=== PATIENT | female | born 1985 | race Caucasian/White ===

== ENCOUNTER 2016-10-12 23:55 | Emergency (ER) | payer OTHER ==
[2016-10-13 00:15] VITALS: BP 112/71; PULSE 112; TEMP 98.9; BMI 29.0
[2016-10-13] MEDS ORDERED: PENICILLIN V POTASSIUM 500 MG TABLET PO ONE (01:22)
[2016-10-13] MEDS ORDERED: DEXAMETHASONE SOD PHOSPHATE 10 MG/1 ML VIAL IM ONE (01:22)
[2016-10-13] MEDS ORDERED: ALBUTEROL SO4 2.5/IPRATROPIUM 0.5 INH SOL 3 ML VIAL.NEB. NEB ONE (01:22)
[2016-10-13] MEDS ORDERED: IBUPROFEN 400 MG TABLET (FP) PO ONE (01:23)
--- NOTE | 2016-10-13 02:50 | PDOC ---
History of Present Illness - General Chief Complaint: Cold Symptoms Stated Complaint: COLD SYMPTOMS Time Seen by Provider: 10/13/16 00:43 History Source: Patient Exam Limitations: No Limitations - History of Present Illness Initial Comments: 10/13/16 02:45 30yo Female patient w/ PmHx: seasonal asthma presents to ED c/o sore throat, cough, pain with swallowing, difficulty eating and wheezing beginning yesterday. Patient reports low grade fever today. She states her sister is a nurse and told her she has strep throat. Patient denies any other complaint at this time. Timing/Duration: reports: yesterday Severity: reports: moderate Possible Cause: Yes: no prior episodes Modifying Factors: improves with: activity, albuterol inhaler, albuterol nebulizer Associated Symptoms: reports: fever/chills, sore throat, wheezing. denies: denies symptoms, chest pain/soreness, cough, dizziness, earache, facial pain, headache, lightheadedness, muscle aches, nasal congestion, nasal drainage, shortness of breath, sinus infection, other Past History - Travel Traveled outside of the country in the last 30 days: No Close contact w/someone who was outside of country & ill: No - Past Medical History Allergies/Adverse Reactions: Allergies Allergy/AdvReac Type Severity Reaction Status Date / Time No Known Drug Allergies Allergy Verified 10/13/16 02:28 cats Allergy Uncoded 10/13/16 00:12 Home Medications: Ambulatory Orders Albuterol 0.083% Nebulizer Erika [Ventolin 0.083% Nebulizer Soln -] 1 amp NEB Q4H PRN #1 box 10/13/16 Albuterol Sulfate Inhaler - [Ventolin Hfa Inhaler -] 1 puff IH Q4H PRN #1 inhaler 10/13/16 Penicillin V Potassium [Pen Vee K -] 500 mg PO TID #21 tablet 10/13/16 Prednisone [Deltasone -] 10 mg PO ASDIR #16 tab 10/13/16 - Psycho/Social/Smoking Cessation Hx Suicidal Ideation: No Smoking History: Current every day smoker Information on smoking cessation initiated: No Respiratory Specific PMHX - Complaint Specific PMHX Angina: No Bronchitis: No Pneumonia: No Pulmonary Embolus: No TB (Tuberculosis): No Review of Systems - Review of Systems Able to Perform ROS?: Yes Is the patient limited Montenegrin proficient: No Constitutional: Yes: Fever. No: Chills HEENTM: Yes: Throat Pain, Difficulty Swallowing. No: Eye Pain, Blurred Vision, Ear Pain, Ear Discharge, Nose Congestion, Throat Swelling, Mouth Pain, Mouth Swelling Respiratory: Yes: Cough, Wheezing. No: Shortness of Breath, Stridor, Hemoptysis Cardiac (ROS): No: Chest Pain, Palpitations, Chest Tightness ABD/GI: No: Constipated, Diarrhea, Nausea, Poor Appetite, Poor Fluid Intake, Vomiting : No: Dysuria, Flank Pain, Hematuria, Lesions Musculoskeletal: No: Back Pain Integumentary: No: Dryness, Erythema, Rash, Sweating Neurological: No: Headache, Seizure All Other Systems: Reviewed and Negative *Physical Exam - Vital Signs Last Vital Signs Temp Pulse Resp BP Pulse Ox 98.9 F 112 H 16 112/71 98 10/13/16 00:14 10/13/16 00:14 10/13/16 00:14 10/13/16 00:10/13/16 00:14 - Physical Exam General Appearance: Yes: Nourished, Appropriately Dressed. No: Apparent Distress, Mild Distress, Moderate Distress, Severe Distress HEENT: positive: EOMI, RUBINA, Normal ENT Inspection, Normal Voice, Symmetrical, TMs Normal, Pharyngeal Erythema, Tonsillar Exudate, Tonsillar Erythema. negative: Pharynx Normal, Nasal Congestion, Rhinorrhea, Sinus Tenderness, TM Bulging, TM Dull, TM Erythema Neck: positive: Trachea midline, Normal Thyroid, Supple, Lymphadenopathy (L). negative: Decreased range of motion, Stridor, Lymphadenopathy (R), Tender lateral, Tender midline Respiratory/Chest: positive: Wheezing Cardiovascular: positive: Tachycardia Gastrointestinal/Abdominal: positive: Normal Bowel Sounds, Soft. negative: Distended, Guarding, Rebound, Tenderness Musculoskeletal: positive: Normal Inspection. negative: CVA Tenderness Extremity: positive: Normal Capillary Refill, Normal Inspection, Normal Range of Motion. negative: Pedal Edema, Calf Tenderness, Erythema, Inflammation Integumentary: positive: Normal Color, Dry, Warm Neurologic: positive: mental health program specialist II-XII NML intact, Fully Oriented, Alert, Normal Mood/ Affect, Normal Response, Motor Strength 5/5 ED Treatment Course - Medications Given in the ED: ED Medications Discontinued Medications Generic Name Dose Route Start Last Admin Trade Name Freq PRN Reason Stop Dose Admin Albuterol/Ipratropium 1 amp 10/13/16 01:22 10/13/16 02:28 Duoneb - NEB 10/13/16 01:23 1 amp ONCE ONE Administration Dexamethasone Sodium Phosphate 10 mg 10/13/16 01:22 10/13/16 02:25 Decadron Injection - IM 10/13/16 01:23 10 mg ONCE ONE Administration Ibuprofen 800 mg 10/13/16 01:23 10/13/16 02:26 Motrin - PO 10/13/16 01:24 800 mg ONCE ONE Administration Penicillin V Potassium 500 mg 10/13/16 01:22 10/13/16 02:33 Pen Vee K - PO 10/13/16 01:23 500 mg ONCE ONE Administration *DC/Admit/Observation/Transfer Diagnosis at time of Disposition: Strep pharyngitis - Discharge Dispostion Disposition: HOME Condition at time of disposition: Stable Admit: No - Prescriptions Prescriptions: Prednisone [Deltasone -] 10 mg PO ASDIR #16 tab Penicillin V Potassium [Pen Vee K -] 500 mg PO TID #21 tablet Albuterol 0.083% Nebulizer Erika [Ventolin 0.083% Nebulizer Soln -] 1 amp NEB Q4H PRN #1 box PRN Reason: Wheezing Albuterol Sulfate Inhaler - [Ventolin Hfa Inhaler -] 1 puff IH Q4H PRN #1 inhaler PRN Reason: TROUBLE BREATHING - Patient Instructions Printed Discharge Instructions: DI for Strep Throat Additional Instructions: FOLLOW UP WITH YOUR PRIMARY CARE PROVIDER. TAKE MEDICATIONS PRESCRIBED. RETURN IF SYMPTOMS WORSEN OR ANY CONCERNS FOR FURTHER EVALUATION. Print Language: HEBREW
[2016-10-13 04:03] LABS: URINE APPEARANCE CLOUDY; URINE BILIRUBIN NEGATIVE (NEGATIVE); URINE COLOR AMBER; URINE GLUCOSE (UA) NEGATIVE (NEGATIVE); URINE KETONE TRACE (NEGATIVE); URINE LEUK ESTERASE NEGATIVE (NEGATIVE); URINE NITRITE NEGATIVE (NEGATIVE); URINE UROBILINOGEN NEGATIVE E.U./dl (0.2-1.0)
[2016-10-13 04:08] LABS: URINE BLOOD 1+ (NEGATIVE); URINE PROTEIN 2+ (NEGATIVE)
[2016-10-13 04:41] LABS: URINE BACTERIA MODERATE /hpf (NONE SEEN); URINE MUCUS MANY; URINE RBC 28 /hpf (0-3); URINE WBC 9 /hpf (3-5)
== END 2016-10-13 04:52 | disposition home or self-care (01) ==
LOC: JER 23:55
PROC: 3E0F7GC Introduction of Other Therapeutic Substance into Respiratory Tract, Via Natural or Artificial Opening (ICD-10-PCS; principal; 2016-10-12)
PROC: 3E033GC Introduction of Other Therapeutic Substance into Peripheral Vein, Percutaneous Approach (ICD-10-PCS; 2016-10-12)
DX: J02.0 Streptococcal pharyngitis (principal); J45.998 Other asthma; F17.210 Nicotine dependence, cigarettes, uncomplicated
CPT/HCPCS: 81003; 81015; 84703; 87086; 99281-25

== ENCOUNTER 2022-06-24 20:48 | Inpatient (IN) | payer OTHER ==
[2022-06-24] MEDS ORDERED: PROMETHAZINE HCL 25 MG/1 ML VIAL IVPUSH ONE (21:12)
[2022-06-24] MEDS ORDERED: DINOPROSTONE 10 MG VAGINAL SUPPOSITORY VG ONE (21:20)
[2022-06-24] MEDS: DEXTROSE 5%-LACTATED RINGERS 1,000 ML IV SCH (21:45)
[2022-06-24 21:49] LABS: BASO % 0.2 % (0-2.0); EOS % 1.3 % (0-4.5); HEMATOCRIT 32.1 % (32.4-45.2); HEMOGLOBIN 10.7 GM/dL (10.7-15.3); LYMPH % 21.4 % (8-40); MCH 26.2 pg (25.7-33.7); MCHC 33.3 g/dl (32.0-36.0); MEAN CELL VOLUME 78.8 fl (80-96); MEAN PLT VOLUME 7.7 fl (7.5-11.1); MONO % 4.2 % (3.8-10.2); NEUT % 72.9 % (42.8-82.8); PLATELET COUNT 316 10^3/uL (134-434); RBC 4.07 M/mm3 (3.60-5.2); RDW 15.2 % (11.6-15.6); WHITE BLOOD COUNT 12.4 K/mm3 (4.0-10.0)
[2022-06-24 21:56] LABS: INR 0.93 (0.83-1.09); PROTHROMBIN TIME (PATIENT) 10.7 SEC (9.7-13.0)
[2022-06-24 22:10] LABS: CALCIUM 8.7 mg/dL (8.5-10.1)
[2022-06-24 22:11] LABS: BLOOD UREA NITROGEN 9.8 mg/dL (7-18)
[2022-06-24 22:14] LABS: CREATININE 0.9 mg/dL (0.55-1.3)
[2022-06-24] MEDS ORDERED: ZOLPIDEM TARTRATE 5 MG TABLET PO ONE (22:16)
[2022-06-24 22:39] VITALS: BMI 31.6
[2022-06-24] MEDS ORDERED: ZOLPIDEM TARTRATE 5 MG TABLET ONE (22:40)
[2022-06-24 23:05] LABS: HIV INTERPRETATION NEGATIVE (NEGATIVE)
[2022-06-25] MEDS ORDERED: CITRIC ACID/SODIUM CITRATE 30 ML UNIT-DOSE CUP PO ONE (00:43)
[2022-06-25] MEDS ORDERED: BUTORPHANOL TARTRATE 1 MG/ML VIAL IVPB ONE (01:00)
[2022-06-25] MEDS ORDERED: OXYTOCIN 30 UNITS in 0.9% NS 30 UNIT/500 ML INFUS.BAG IVPB SCH (08:00)
[2022-06-25] MEDS ORDERED: OXYTOCIN 30 UNITS in 0.9% NS 30 UNIT/500 ML INFUS.BAG IVPB ONE (08:19)
[2022-06-25] MEDS: DEXTROSE 5%-LACTATED RINGERS 1,000 ML IV SCH (12:39)
[2022-06-25] MEDS ORDERED: BUTORPHANOL TARTRATE 2 MG/ML VIAL ONE ×2 (13:49→16:51)
[2022-06-25] MEDS ORDERED: PROMETHAZINE HCL 25 MG/1 ML VIAL ONE ×2 (13:49→16:51)
[2022-06-25] MEDS ORDERED: FENTANYL/BUPIVACAINE/NS/PF - PCEA - 50 ML DISP.SYRIN EP ONE ×2 (16:00→22:19)
[2022-06-25] MEDS ORDERED: BUTORPHANOL TARTRATE 2 MG/ML VIAL IVPB ONE (17:00)
[2022-06-25] MEDS ORDERED: PROMETHAZINE HCL 25 MG/1 ML VIAL IVPB ONE (17:00)
[2022-06-25] MEDS ORDERED: FENTANYL CITRATE/PF 50 MCG/ML VIAL ONE (18:11)
[2022-06-25] MEDS: FENTANYL/BUPIVACAINE/NS/PF - PCEA - 50 ML DISP.SYRIN EP SCH ×2 (18:25→22:25)
[2022-06-25] MEDS ORDERED: NALOXONE HCL 0.4 MG/ML VIAL IVPUSH PRN (18:33)
[2022-06-25 20:14] LABS: COCAINE, UR NEGATIVE (NEGATIVE); OPIATES, URI NEGATIVE (NEGATIVE); PHENCYCLIDINE,URINE NEGATIVE (NEGATIVE)
[2022-06-25 20:15] LABS: METHADONE, UR NEGATIVE (NEGATIVE); URINE BENZODIAZEPINES NEGATIVE (NEGATIVE)
[2022-06-25 20:38] LABS: URINE AMPHETAMINES NEGATIVE (NEGATIVE); URINE BARBITURATES NEGATIVE (NEGATIVE)
[2022-06-25] MEDS ORDERED: OXYTOCIN 20 UNITS in 0.9% NS 20 UNIT/1,000 ML INFUS.BAG IV ONE (22:42)
[2022-06-25] MEDS ORDERED: LIDOCAINE HCL 1% PRESERVATIVE FREE - 30ML VIAL ONE (22:42)
[2022-06-25] MEDS ORDERED: WITCH HAZEL 50% (TUCKS) 40 PAD/JAR PAD TP PRN (23:27)
[2022-06-25] MEDS ORDERED: BENZOCAINE 28 GM HEMORRHOIDAL OINTMENT TP PRN (23:27)
[2022-06-25] MEDS ORDERED: METHYLERGONOVINE MALEATE 0.2 MG/1 ML AMP IM PRN (23:27)
[2022-06-25] MEDS ORDERED: BENZOCAINE 20% 57 GM BOTTLE TP PRN (23:27)
[2022-06-25] MEDS ORDERED: oxyCODONE HCL 5 MG TABLET PO PRN (23:27)
[2022-06-25] MEDS ORDERED: BISACODYL 10 MG SUPP.RECT RC PRN (23:27)
[2022-06-25] MEDS ORDERED: ACETAMINOPHEN 325 MG TABLET (FP) PO PRN (23:27)
[2022-06-25] MEDS ORDERED: OXYTOCIN 20 UNITS in 0.9% NS 20 UNIT/1,000 ML INFUS.BAG IV SCH (23:30)
[2022-06-26] MEDS: IBUPROFEN 600 MG TABLET (FP) PO PRN ×3 (08:36→16:58)
[2022-06-26 09:31] LABS: BASO % 0.2 % (0-2.0); EOS % 0.2 % (0-4.5); HEMATOCRIT 32.1 % (32.4-45.2); HEMOGLOBIN 10.4 GM/dL (10.7-15.3); MCH 25.6 pg (25.7-33.7); MCHC 32.4 g/dl (32.0-36.0); NEUT % 79.6 % (42.8-82.8); PLATELET COUNT 281 10^3/uL (134-434); RBC 4.06 M/mm3 (3.60-5.2); RDW 15.3 % (11.6-15.6); WHITE BLOOD COUNT 17.8 K/mm3 (4.0-10.0)
[2022-06-26] MEDS: PRENATAL VITAMINS W/ FOLIC ACID TABLET (FP) PO SCH (09:45)
[2022-06-26] MEDS ORDERED: SENNOSIDES/DOCUSATE COMBO (SENNA PLUS) TABLET (UD) PO PRN (22:00)
[2022-06-27] MEDS: IBUPROFEN 600 MG TABLET (FP) PO PRN ×2 (00:33→09:00)
[2022-06-27] MEDS: PRENATAL VITAMINS W/ FOLIC ACID TABLET (FP) PO SCH (11:29)
[2022-06-27 11:53] VITALS: BP 121/71; PULSE 84; RESP 17; TEMP 97.8
== END 2022-06-27 12:40 | disposition home or self-care (01) | DRG 807 ==
LOC: JLDR 20:48 → J3W 06-26 00:26
PROVIDERS: ADMIT Obstetrics & Gynecology; ATTEND Obstetrics & Gynecology
PROC: 10E0XZZ Delivery of Products of Conception, External Approach (ICD-10-PCS; principal; 2022-06-25)
DX: O80 Encounter for full-term uncomplicated delivery (principal); Z37.0 Single live birth; Z3A.39 39 weeks gestation of pregnancy
CPT/HCPCS: 36415; 59409; 80048; 80307; 85025; 85610; 85730; 86780; 86850; 86900; 86901; 87389; C9803-CS; U0003; U0005

== ENCOUNTER 2025-02-08 19:08 | Emergency (ER) | payer OTHER ==
[2025-02-08 19:36] VITALS: RESP 18; TEMP 98.2; BMI 32.3
[2025-02-08 20:03] LABS: EPI CELLS 16 /uL (0-25.1); HYALINE CASTS 0 /uL (0-3.1); URINE APPEARANCE CLEAR; URINE BACTERIA 159 /uL (0-1359); URINE BILIRUBIN NEGATIVE (NEGATIVE); URINE COLOR YELLOW; URINE GLUCOSE (UA) NEGATIVE (NEGATIVE); URINE KETONE NEGATIVE (NEGATIVE); URINE LEUK ESTERASE 1+ (NEGATIVE); URINE NITRITE NEGATIVE (NEGATIVE); URINE PROTEIN TRACE (NEGATIVE); URINE UROBILINOGEN 0.2 mg/dL (0.2-1.0); URINE WBC 81 /uL (0-25.8)
[2025-02-08 20:05] LABS: URINE RBC 50.6 /uL (0-23.9)
[2025-02-08] MEDS ORDERED: ACETAMINOPHEN INJECTION 100 ML ONE (21:09)
[2025-02-08] MEDS ORDERED: CEFTRIAXONE 1 GM/50 ML BAG ONE (21:09)
[2025-02-08] MEDS ORDERED: ONDANSETRON 4 MG/2 ML VIAL ONE (21:09)
[2025-02-08 21:16] LABS: ABSOLUTE IMMATURE GRANULOCYTES 0.05 x10^3/uL (0.0-0.031); BASOPHILS # 0.03 x10^3/uL (0.01-0.08); EOSINOPHIL % 2.2 % (0.7-5.8); EOSINOPHILS # 0.32 x10^3/uL (0.04-0.36); MCHC 31.3 g/dl (32.2-35.5); MEAN CELL VOLUME 82.9 fl (79.4-94.8); MEAN PLT VOLUME 9.5 fl (9.4-12.3); MONOCYTE # 0.67 x10^3/uL (0.24-0.86); MONOCYTE % 4.6 % (4.7-12.5); RDW 16.0 % (12.1-16.8)
[2025-02-08] MEDS: ACETAMINOPHEN 1000 MG/100 ML BAG IVPB ONE (21:20)
[2025-02-08] MEDS: SODIUM CHLORIDE 0.9% 1000 ML INFUS.BAG IV STA (21:20)
[2025-02-08 21:21] LABS: GLUCOSE,RANDOM 79.0 mg/dL (74-106); TOT PROT 7.7 g/dl (6.4-8.2)
[2025-02-08] MEDS: ONDANSETRON 4 MG/2 ML VIAL IVPB ONE (21:21)
[2025-02-08] MEDS: CEFTRIAXONE 1 GM in DEXTROSE 5%-WATER - 100 ML IVPB ONE (21:21)
[2025-02-08 21:22] LABS: CO2 24.0 mmol/L (21-32)
[2025-02-08 21:24] LABS: ALK PHOS 71.0 U/L (40-150)
[2025-02-08 21:27] LABS: CREATININE 0.98 mg/dL (0.55-1.3); SGOT/AST 32.0 U/L (5-34); SGPT/ALT 30.0 U/L (0-55)
[2025-02-08 22:48] VITALS: BP 148/83; PULSE 97
[2025-02-08 23:34] LABS: HIV INTERPRETATION NEGATIVE (NEGATIVE)
[2025-02-09 00:47] LABS: HCV DIAGNOSTIC IN-HOUSE W/RFLX NON-REACTIVE (NONREACTIVE)
== END 2025-02-08 22:48 | disposition home or self-care (01) ==
LOC: JER 19:08
PROC: 3E03329 Introduction of Other Anti-infective into Peripheral Vein, Percutaneous Approach (ICD-10-PCS; principal; 2025-02-08)
PROC: 3E033NZ Introduction of Analgesics, Hypnotics, Sedatives into Peripheral Vein, Percutaneous Approach (ICD-10-PCS; 2025-02-08)
PROC: 3E033GC Introduction of Other Therapeutic Substance into Peripheral Vein, Percutaneous Approach (ICD-10-PCS; 2025-02-08)
DX: N39.0 Urinary tract infection, site not specified (principal); R30.0 Dysuria; R35.0 Frequency of micturition; M54.9 Dorsalgia, unspecified; R11.0 Nausea
CPT/HCPCS: 36415; 80053; 81003; 84703; 85025; 86803; 87086; 87389; 99284-25